=== PATIENT | female | born 1965 | race Caucasian/White ===

== ENCOUNTER 2021-02-26 11:45 | Emergency (ER) | payer BC ==
[2021-02-26 12:20] LABS: HEMOGLOBIN 15.6 gm/dl (12.3-15.3); RED BLOOD COUNT 4.93 M/UL (4.00-5.10); WHITE BLOOD COUNT 14.1 K/UL (4.5-11.0)
[2021-02-26 12:50] LABS: BUN/CREATININE RATIO 20 (0-10)
[2021-02-26] MEDS ORDERED: HYDROCODON-ACE1 EAC4 PO (16:14)
[2021-02-26] MEDS ORDERED: ONDANSETRON ODT4 MG SL (16:26)
[2021-02-26] MEDS ORDERED: AUGMENTIN 875-1 EACH PO (16:26)
[2021-02-26] MEDS ORDERED: K-TAB ER20 MEQ PO (16:28)
== END 2021-02-26 18:06 | disposition home or self-care (01) ==
LOC: ER1 11:45
PROVIDERS: Physician Assistant
DX: K81.9 Cholecystitis, unspecified (principal); E87.6 Hypokalemia; I10 Essential (primary) hypertension; F17.200 Nicotine dependence, unspecified, uncomplicated; Z90.89 Acquired absence of other organs
CPT/HCPCS: 76705; 80053; 81001; 83690; 85025; 87086; 96374; 96375; 96376; 99284; J1644; J1885; J2405; J3480

== ENCOUNTER 2021-03-01 14:47 | Observation (INO) | payer BC ==
[~2021-03-01] VITALS: Ht 162.6 cm; Wt 63.5 kg
[~2021-03-01 14:47] MED LIST: AUGMENTIN 875-1 EACH PO; HYDROCODON-ACE1 EAC4 PO; K-TAB ER20 MEQ PO; ONDANSETRON ODT4 MG SL
[2021-03-01 16:30] LABS: HEMOGLOBIN 14.3 gm/dl (12.3-15.3); RED BLOOD COUNT 4.51 M/UL (4.00-5.10); WHITE BLOOD COUNT 8.6 K/UL (4.5-11.0)
[2021-03-01 16:48] LABS: BUN/CREATININE RATIO 11 (0-10)
[2021-03-01] MEDS ORDERED: MELATONIN3 MG PO (20:18)
[2021-03-02] MEDS ORDERED: HYDROCODON-ACE1 EAC2 PO (10:44)
--- NOTE | 2021-03-02 19:02 | NUR ---
1151 - Patient back on the floor 5 abdominal surgical incision -dermabond in placed. patient denies pain. will cont to monitor
== END 2021-03-02 20:21 | disposition home or self-care (01) ==
LOC: ER1 14:47 → CDU 17:49 → M/S 17:49
PROVIDERS: Physician Assistant Medical; ADMIT Surgery
PROC: 0FT44ZZ Resection of Gallbladder, Percutaneous Endoscopic Approach (ICD-10-PCS; principal; 2021-03-02 08:45)
DX: K80.12 Calculus of gallbladder with acute and chronic cholecystitis without obstruction (principal); F17.210 Nicotine dependence, cigarettes, uncomplicated; Z20.822 Contact with and (suspected) exposure to COVID-19
CPT/HCPCS: 80053; 81001; 83605; 85025; 87040; 96374; 96375; 96376; 99285; C1729; G0008; G0378; J1100; J1170; J1885; J2001; J2250; J2370; J2405; J2543; J2704; J2710; J3010; J7030; J7120; U0002